=== PATIENT | female | born 1985 | race American Indian/Alaskan Native ===

== ENCOUNTER 2017-03-17 19:17 | Emergency (ER) | payer SELFPAY ==
[2017-03-17 19:17] VITALS: BMI 19.7
[2017-03-17 19:40] VITALS: BP 106/72; PULSE 68; RESP 18; TEMP 98.8; O2SAT 100
--- NOTE | 2017-03-17 20:08 | C.PDOC ---
History Of Present Illness 31 y/o female presents to ED with complaints of sharp throbbing pain to left side of head since yesterday. Patient states she has taken Ibuprofen and Aspirin which reliefs symptoms temporary but then return. Denies ear pain, fever , vision changes, cough, nausea, lightheadedness, numbness or any other complaints at this time. LMP 03/02/16. Time Seen by Provider: 03/17/17 19:44 Chief Complaint (Nursing): Headache History Per: Patient History/Exam Limitations: no limitations Onset/Duration Of Symptoms: Days Current Symptoms Are (Timing): Still Present Quality: Sharp Associated Symptoms: denies: Photophobia, Blurred Vision Past Medical History Reviewed: Historical Data, Nursing Documentation, Vital Signs Vital Signs: Last Vital Signs Temp 98.8 F 03/17/17 19:37 Pulse 68 03/17/17 19:37 Resp 18 03/17/17 19:37 BP 106/72 03/17/17 19:37 Pulse Ox 100 03/17/17 21:13 - Medical History PMH: No Chronic Diseases Surgical History: No Surg Hx Family History: States: No Known Family Hx - Social History Hx Tobacco Use: Yes Hx Alcohol Use: No Hx Substance Use: No - Immunization History Hx Tetanus Toxoid Vaccination: No Hx Influenza Vaccination: No Hx Pneumococcal Vaccination: No Review Of Systems Eyes: Negative for: Vision Change, Redness ENT: Negative for: Ear Pain Gastrointestinal: Negative for: Nausea, Vomiting Musculoskeletal: Negative for: Neck Pain Skin: Negative for: Rash Neurological: Positive for: Headache. Negative for: Weakness, Numbness, Confusion, Dizziness Physical Exam - Physical Exam Appears: Well, Non-toxic, No Acute Distress Skin: Warm, Dry, No Rash Head: Atraumatic, Normacephalic, No Tenderness, No Swelling Eye(s): bilateral: Normal Inspection, PERRL, EOMI, Other (no nystagmus) Oral Mucosa: Moist Neck: Normal ROM, Supple Chest: Symmetrical, No Tenderness Cardiovascular: Rhythm Regular, No Murmur Respiratory: Normal Breath Sounds, No Rales, No Rhonchi, No Wheezing Extremity: Bilateral: Atraumatic, Normal Color And Temperature, Normal ROM Neurological/Psych: Oriented x3, Normal Speech, Normal Motor, Normal Sensation Gait: Steady ED Course And Treatment O2 Sat by Pulse Oximetry: 100 (RA) Pulse Ox Interpretation: Normal Medical Decision Making Medical Decision Making: Impression: Migraine Plan: POC urine was negative Toradol and Fioricet On reassessment, patient is resting comfortably in no acute distress. She reports her headache has improved. Patient has no neurologic deficit, photophobia, rash, fever, or nuchal rigidity. Patient was instructed to follow up with physician/clinic in 1-2 days. Disposition Counseled Patient/Family Regarding: Diagnosis, Need For Followup, Rx Given - Disposition Referrals: [facility] [Outside] [facility] [Outside] Disposition: HOME/ ROUTINE Disposition Time: 21:08 Condition: GOOD Additional Instructions: Follow up with your primary medical doctor or clinic in 2-5 days for further evaluation. Take medications as prescribed. Return to the emergency department at any time if symptoms persist or worsen. 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 - Scribe Statement The provider has reviewed the documentation as recorded by the Facundoibnathen Godinez All medical record entries made by the Niko were at my direction and personally dictated by me. I have reviewed the chart and agree that the record accurately reflects my personal performance of the history, physical exam, medical decision making, and the department course for this patient. I have also personally directed, reviewed, and agree with the discharge instructions and disposition.
[2017-03-17] MEDS ORDERED: Apap-Butalbital-Caffeine 325-50-40mg Tab PO STA (20:10)
[2017-03-17] MEDS ORDERED: Apap-Butalbital-Caffeine 325-50-40mg Tab ONE (20:36)
== END 2017-03-17 21:22 | disposition home or self-care (01) ==
LOC: C.ER 19:17
DX: R51 Headache (principal)
CPT/HCPCS: 96372; 99284; J1885